=== PATIENT | male | born 1960 | race Two or more races ===

== ENCOUNTER → 2022-01-20 | Day surgery (SDC) | payer OTHER ==
[~2022-01-20] VITALS: Ht 172.7 cm; Wt 79.4 kg
[~2022-01-20] MED LIST: AMLODIPINE-OLM1 EAC2 PO; ATORVASTATIN CA20 MG PO; LEVOXYL25 MCG PO; PANTOPRAZOLE SO40 MG; PERCOCET 5-3251 EACH PO; RECTICARE30 GM TOP
--- NOTE | 2022-01-20 08:22 | NUR ---
SE RECIBE PTE ALERTA Y ORIENTADO X3 CUAL VIENE REFEREIDO POR DR.JOSE JONES PARA ADMISION. SE LAZARA S/V Y SE UBICA EN PASILLO.
--- NOTE | 2022-01-20 09:06 | NUR ---
SE RECIBE PTE MASCULINO DE 61 YRS ALERTA CONCIENTE Y TRANQUILO EN COMPANIA DE FMAILIAR. PTE ES VALUADO POR EL MIMI TAFOYA QUIEN ORDENA TRATMAIENTO LA CUAL SE EJECUTA POR MS MIRANDA . PTE CONSULTADO CON EL AALIYAH TAFOYA POR DX DE HEMORROIDES LA CUAL ADMITERA BAJO SUNIL SERVCIO.SE MANTIENE BAJO OBSERVACION.
== END | disposition home or self-care (01) ==
LOC: ER 08:12 → CIR.AMB 10:02 → ER 10:02 → SEC-K 10:02 → CIR.AMB 10:02 → O/R 11:34 → SEC-K 11:34 → EDSTATUS 14:00 → O/R 20:35
PROVIDERS: ATTEND Emergency Medicine
DX: K64.2 Third degree hemorrhoids (principal); K64.8 Other hemorrhoids; Z20.822 Contact with and (suspected) exposure to COVID-19; I10 Essential (primary) hypertension; R42 Dizziness and giddiness